=== PATIENT | female | born 1935 | race African-American/Black ===

== ENCOUNTER 2021-03-07 13:36 | Emergency (ER) | payer MEDICARE, SELFPAY ==
--- NOTE | ~2021-03-07 | CT_ITS ---
EXAMINATION: CT abd pelvis lumbar wo con EXAM DATE: 03/07/2021 17:33 INDICATION: left flank pain radiating to abdomen. TECHNIQUE: Spiral CT of the abdomen and pelvis, and lumbar spine was performed without contrast. Axi al, coronal and sagittal images of the abdomen and pelvis were reviewed. Spiral CT of the lumbar spi ne was performed with same injection of contrast. Axial, coronal and sagittal images lumbar spine we re reviewed. The dose-length product (DLP) for this examination was 338.81 mGy-cm. The exposure wa s tailored according to patient size (auto mA exposure control), and iterative reconstruction (ASIR) was used as additional dose reduction technique. There is no prior study for comparison. FINDINGS: ABDOMEN PELVIS: The liver, spleen, adrenal glands and pancreas are unremarkable. Gallbladder is unre markable. No biliary obstruction. There is no nephrolithiasis or hydronephrosis. The uterus is no t identified and has likely been surgically resected. The bladder is unremarkable. There is no retr operitoneal or pelvic lymphadenopathy. The appendix is normal. There is mild scattered colonic diverticulosis. There is no adjacent inflamm atory change to suggest diverticulitis. There is moderate-sized gastroesophageal hiatal hernia. Ther e is expected amount of colonic stool. No free intraperitoneal gas. The heart is normal in size. There are no pericardial or pleural effusions. The lung bases are unremarkable. There are no osteo blastic or osteolytic lesions identified. LUMBAR SPINE: There is mild acute compression fracture of the L1 vertebral body. There is chronic ranjana earing L2 burst fracture with mild to moderate loss of this height posteriorly, moderate to severe lo ss centrally and anteriorly. There is about 4 mm retropulsion at the L2 superior endplate, mild to mo derate central canal stenosis. There is no disc space widening or traumatic vertebral body subluxatio n suspected. Paraspinal soft tissue is unremarkable. There is moderate to severe L4-5 disc disease, mild to moderate at L3-4 with 3 mm anterolisthesis. There is moderate right L4-5 neural foraminal adams nosis, less at the other lumbar levels. No spondylolysis. Moderate disc disease T11-12 and T12-L1. Ov erall moderate lumbar facet arthropathy. A detailed level by level evaluation of spondylosis can be a dded as addendum if requested. IMPRESSION: 1. L1 acute mild compression fracture. 2. L2 chronic burst fracture. 3. Moderate-sized hiatal hernia. 4. Scattered colonic diverticulosis. Reviewed, dictated and finalized at location A. WORK WRAPPER LAYER AND EXAMINER
[2021-03-07 14:03] VITALS: BP 127/63; PULSE 82; RESP 18; TEMP 35.9; O2SAT 100
[2021-03-07 16:59] VITALS: BP 131/65; PULSE 70; RESP 18; O2SAT 100
[2021-03-07] MEDS: ACETAMINOPHEN 500 MG TABLET 1000 MG PO (17:08)
--- NOTE | 2021-03-07 17:30 | ED.BACK ---
HPI - Back Pain/Injury General Chief Complaint: Back Pain/Injury Stated Complaint: back paoin Time Seen by Provider: 03/07/21 16:41 Source: patient and family Mode of arrival: wheelchair Limitations: no limitations History of Present Illness HPI Narrative: This is a 86-year-old female that presents to the emergency department for left-sided low back pain present over the last couple of days. No recent injury or trauma. Reports the pain radiates into her left abdomen and hip. Pain also radiates down the left leg. Pain is worse with movement and relieved with rest. Reports some urinary frequency. Her daughter was concerned she may have taken too many of her water pills. Denies fever, abdominal pain, vomiting, dysuria, hematuria. Related Data Allergies Allergy/AdvReac Type Severity Reaction Status Date / Time No Known Allergies Allergy Verified 03/07/21 17:02 Review of Systems Review of Systems: CONSTITUTIONAL: Denies fever GASTROINTESTINAL: Denies abdominal pain, nausea, vomiting GENITOURINARY: Denies dysuria or hematuria. SKIN: Denies rash MUSCULOSKELETAL: Reports back pain, joint pain, and myalgia. NEUROLOGIC: Denies numbness, or weakness. All systems reviewed & are unremarkable except as noted in HPI and below PMFSH Past Medical History Medical History (Updated 03/07/21 @ 19:42 by Elissa Manzo PA-C) History of hypertension Social History Social History (Updated 03/07/21 @ 17:34 by Elissa Manzo PA-C) Substance use: never Exam Narrative: GENERAL: Elderly, well-nourished, and in no acute distress. HEAD: Normocephalic, atraumatic. EYES: EOMI. CHEST: Clear to auscultation. No respiratory distress. No wheezes rales or rhonchi HEART: Regular rate and rhythm. No murmur heard. Normal peripheral pulses. ABDOMEN: Soft, nontender, nondistended, normal active bowel sounds. BACK: No midline spinal tenderness EXTREMITIES: Normal range of motion. No edema. Strength equal in bilateral lower extremities (5/5) SKIN: Warm, dry, no rash. NEURO: No focal deficits. Alert and oriented x3. PSYCH: Normal mood and affect Course Vital Signs Vital signs: Vital Signs Temperature 96.6 F L 03/07/21 14:03 Pulse Rate 82 03/07/21 14:03 Respiratory Rate 18 03/07/21 14:03 Blood Pressure 127/63 03/07/21 14:03 Pulse Oximetry 100 03/07/21 14:03 Temperature 96.6 F L 03/07/21 14:03 Pulse Rate 70 03/07/21 16:59 Respiratory Rate 18 03/07/21 16:59 Blood Pressure 131/65 03/07/21 16:59 Pulse Oximetry 100 03/07/21 16:59 MDM - Back Pain/Injury MDM Narrative Medical decision making narrative: Patient presents to the emergency department for low back pain present over the last couple of days. Reports no recent injury or trauma. She is neurologically intact. Her vitals are stable. CBC with mild leukocytosis to 11.1. Metabolic panel with mild hypokalemia. Patient given a dose of potassium in the ED. UA without evidence of infection. CT scan of the abdomen pelvis shows an L1 acute mild compression fracture. She has a L2 chronic burst fracture. Patient and family updated on case findings. Reports she does not want any prescribed pain medication. Will be given spine surgery and information for kyphoplasty. She is stable and felt appropriate for further outpatient evaluation. She was given warnings to return to the ER Lab Data Attestation: I reviewed the patient's lab results. Result diagrams: 03/07/21 17:52 03/07/21 17:52 Labs: Lab Results 03/07/21 03/07/21 03/07/21 Range/Units 17:52 17:52 19:07 WBC 11.1 H (4.5-10.0) K/mm3 RBC 4.38 (4.2-5.4) M/mm3 Hgb 13.3 (12.0-15.0) g/dL Hct 40.1 (37.0-47.0) % MCV 91.6 (80-100) fl MCH 30.4 (26-34) pg MCHC 33.2 (32-36) g/dl RDW 14.4 (11.5-14.5) % Plt Count 360 (150-375) k/mm3 MPV 9.2 (7.4-10.4) fl Immature Gran % (Auto) 0.4 (0-0.5) % Neut % (Auto) 73.8 H (45.5-
--- NOTE | 2021-03-07 17:36 | PC.NURSE ---
Pt off floor in radiology
[2021-03-07 17:58] LABS: Basophils Absolute Auto 0.1 K/mm3 (0.0-0.1); Basophils Percent Auto 0.4 % (0.2-1.2); Eosinophils Absolute Auto 0.1 K/mm3 (0-0.3); Eosinophils Percent Auto 0.8 % (0-4.4); Hematocrit 40.1 % (37.0-47.0); Hemoglobin 13.3 g/dL (12.0-15.0); Immature Granulocyte Absolute 0.04 K/mm3 (0.00-0.031); Immature Granulocyte Percent A 0.4 % (0-0.5); Lymphocytes Absolute Auto 2.04 K/mm3 (0.9-3.2); Lymphocytes Percent Auto 18.3 % (18.3-44.2); Mean Corpuscular HGB Conc 33.2 g/dl (32-36); Mean Corpuscular Hemoglobin 30.4 pg (26-34); Mean Corpuscular Volume 91.6 fl (80-100); Mean Platelet Volume 9.2 fl (7.4-10.4); Monocytes Absolute Auto 0.7 K/mm3 (0.1-0.6); Monocytes Percent Auto 6.3 % (2.6-8.5); Neutrophils Absolute Auto 8.2 K/mm3 (1.3-6.7); Neutrophils Percent Auto 73.8 % (45.5-73.1); Platelet Count Result 360 k/mm3 (150-375); Red Blood Count 4.38 M/mm3 (4.2-5.4); Red Cell Distribution Width 14.4 % (11.5-14.5); White Blood Count 11.1 K/mm3 (4.5-10.0)
[2021-03-07 18:13] LABS: Anion Gap 13 mmol/L (8-16); Blood Urea Nitrogen 17 mg/dL (7-17); Carbon Dioxide 21 mmol/L (22-30); Chloride 101 mmol/L (98-107); Estimated CRCL calculation 53 ml/min; Estimated Glomerular Filt Rate > 60; Glucose 87 mg/dL (65-110); Sodium 135 mmol/L (137-145)
[2021-03-07 19:36] LABS: Add Urine Microscopic? YES; Appearance Urine Clear (Clear); Bilirubin Urine Negative (Negative); Blood Urine 1+ (Negative); Color Urine Yellow (Yellow); Glucose Urine UA Negative (Negative); Ketones Urine 1+ mg/dL (Negative); Leukocyte Esterase Ur Negative LEU/UL (Negative); Mucus Urine Rare /lpf; Nitrate Urine Negative (Negative); Protein Urine Negative (Negative); RBC Urine 0-2 /hpf (0-2); Specific Grav Ur 1.006 (1.001-1.035); Squamous Epithelial Cell Urine Occasional /hpf (Few); Urobilinogen Urine Negative mg/dL (<2.0); WBC Urine 0-3 /hpf
[2021-03-07] MEDS: POTASSIUM CHLORIDE 20 MEQ TABLET 40 MEQ PO (19:52)
[2021-03-07 20:05] VITALS: BP 120/64; PULSE 79; RESP 18; TEMP 36.6; O2SAT 99
== END 2021-03-07 20:05 | disposition home or self-care (01) ==
PROVIDERS: Emergency Medicine; Physician Assistant; Emergency Provider Emergency Medicine
DX: M48.56XA Collapsed vertebra, not elsewhere classified, lumbar region, initial encounter for fracture (principal); I10 Essential (primary) hypertension; K44.9 Diaphragmatic hernia without obstruction or gangrene; K57.90 Diverticulosis of intestine, part unspecified, without perforation or abscess without bleeding
CPT/HCPCS: 36415; 72131; 74176; 80048; 81001; 85025; 99284; A9270

== ENCOUNTER 2022-06-11 13:08 | Outpatient (CLI) | payer MEDICARE, SELFPAY ==
--- NOTE | ~2022-06-11 | XR_ITS ---
EXAMINATION: XR chest 2V 06/11/2022 13:23 INDICATION: Cough. PROCEDURE: 2 view chest COMPARISON: No prior studies for comparison. FINDINGS: The lungs are clear. The lungs are hyperinflated which is consistent with, but not diagnost ic of chronic obstructive pulmonary disease. The cardiomediastinal silhouette is within normal limits . There are no pleural effusions. There is no pneumothorax suspected. There is hiatal hernia. IMPRESSION: 1: NO ACUTE CARDIOPULMONARY DISEASE. Reviewed, dictated and finalized at location B. ER TAILER
== END 2022-06-11 13:09 | disposition home or self-care (01) ==
LOC: ANHIMG 13:10
PROVIDERS: PCP Physician Assistant; Visit Provider Physician Assistant
DX: R05.9 Cough, unspecified (principal)
CPT/HCPCS: 71046

== ENCOUNTER 2023-04-17 10:03 | Inpatient (IN) | payer MEDICARE, SELFPAY ==
[2023-04-17] VITALS (14 sets, daily range): BP systolic 106–150; BP diastolic 53–71; PULSE 62–87; RESP 14–26; TEMP 36.3–36.8; O2SAT 93–100; BMI 26.4
--- NOTE | ~2023-04-17 | CT_ITS ---
EXAMINATION: CTA brain carotid DATE: 04/17/2023 15:06 INDICATION: CVA, left sided weakness TECHNIQUE: Computed tomographic angiography (CTA) of the head and neck was performed with 100 mL Omni paque-350 intravenous contrast. Automated exposure control and iterative reconstruction technique wer e employed. The dose-length product was 959.52 mGy-cm. Maximum intensity projection and volume rende red 3D-reconstructions were created by the technologist on a separate workstation. COMPARISON: CT brain, same date. FINDINGS: CTA HEAD: No large vessel occlusion, aneurysm, high flow vascular malformation, nidus or extravasation. Focal c alcification in the mid intradural segment of the right vertebral artery without significant stenosis . Persistent origin of the right FOOD SERVICE TEAM MEMBER. Focal short segment mild stenoses in the bilateral M1 seg ments. Calcified plaque in the bilateral cavernous carotids, without significant stenosis. Patent cer ebral veins. Symmetric parenchymal enhancement. CTA NECK: Aortic arch and proximal great vessels: Mild arch calcification. Normal arch anatomy. Right common carotid, carotid bifurcation, and internal carotid artery: No plaque.There is 0% stenosi s of the proximal right internal carotid artery relative to normal distal artery lumen diameter (NASC ET criteria). Vascular loops. String of beads appearance in the distal right internal carotid artery. No dissection, thrombosis, or severe stenosis detected in the affected portions of the vessel. Left common carotid, carotid bifurcation, and internal carotid artery: No plaque.There is 0% stenosis of the proximal left internal carotid artery relative to normal distal artery lumen diameter (NASCET criteria). Vascular loops. String of beads appearance in the distal left internal carotid artery. No dissection, thrombosis, or severe stenosis detected in the affected portions of the vessel. Vertebral arteries: No significant plaque or stenosis. Left vertebral artery is dominant. Vascular lo ops are present bilaterally, with mild string of beads appearance to the distal arteries. No dissecti on, thrombosis, or severe stenosis detected in the affected portions of the vessel. Other findings: Patulous esophagus. Biapical pleural scarring subcentimeter thyroid hypodensities alexei t require no additional evaluation at this time. Right lens replacement. IMPRESSION: No large vessel occlusion. No significant carotid or vertebral artery stenosis. 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 Sim ilar but less pronounced changes also noted in the bilateral extracranial vertebral arteries. Reviewed, dictated and finalized at location K. IFICATION CONSULTANT IMPRESSION: No large vessel occlusion. No significant carotid or vertebral artery stenosis. CT findings suggestive of bilateral extracranial internal carotid artery fibrom uscular dysplasia. Similar but less pronounced changes also noted in the bilate ral extracranial vertebral arteries.
--- NOTE | ~2023-04-17 | MR_ITS ---
MRI of the brain Clinical History: Left-sided weakness Technique: Axial and sagittal T1-weighted images were acquired. These were followed by axial T2-weigh vasyl, diffusion weighted, gradient, and FLAIR images. Findings: There is a 1.8 x 1.1 cm area of restricted diffusion involving the right periventricular wh ite matter, extending to the right basal ganglia, consistent with acute infarct. There are mild to mo derate background chronic microvascular ischemic changes in the periventricular white matter bilatera lly. No intracranial hemorrhage identified. Ventricles and subarachnoid spaces are dilated. Orbits are unremarkable. Paranasal sinuses and mastoi d air cells are clear. Major intracranial flow voids appear intact. Sagittal midline structures are intact. IMPRESSION: 1.8 x 1.1 cm area of acute infarct involving the right basal ganglia extending to the right periventr icular white matter. Background mild to moderate chronic microvascular ischemic changes and mild generalized atrophy. No intracranial hemorrhage. Reviewed, dictated and finalized at [facility]. AL PROGRAM DIRECTOR IMPRESSION: 1.8 x 1.1 cm area of acute infarct involving the right basal ganglia extending to the right periventricular white matter. Background mild to moderate chronic microvascular ischemic changes and mild gen eralized atrophy. No intracranial hemorrhage.
--- NOTE | ~2023-04-17 | CT_ITS ---
EXAMINATION: CT brain wo con DATE: 04/17/2023 11:19 INDICATION: Generalized weakness. Head injury. TECHNIQUE: Computed tomography (CT) of the head was performed without intravenous contrast. The mA wa s adjusted according to patient size. Iterative reconstruction technique was employed. The dose-lengt h product was 605.33 mGy-cm. COMPARISON: None FINDINGS: There are scattered areas of low attenuation in the cerebral white matter. There is no intr acranial hemorrhage, acute infarction, or abnormal intracranial mass lesion. The ventricles are rosie l in size. There are likely changes of right ocular lens replacement surgery. There is mild mucosal t hickening in the paranasal sinuses. The mastoid air cells are normal. IMPRESSION: 1. Moderate nonspecific cerebral white matter disease, which likely represents chronic small vessel i schemic disease. Reviewed, dictated and finalized at location A. ROLLER IMPRESSION: 1. Moderate nonspecific cerebral white matter disease, which likely represents chronic small vessel ischemic disease.
--- NOTE | ~2023-04-17 | XR_ITS ---
EXAMINATION: XR elbow RT min 3V DATE: 04/20/2023 14:37 INDICATION: Right elbow pain and limited range of motion TECHNIQUE: Anteroposterior, two oblique and lateral views of the right elbow were obtained. COMPARISON: 04/17/2023 FINDINGS: Chronic potentially nonunited fracture with separation of the distal condylar fragments in the more p roximal metaphyseal region of the distal humerus. The condylar fragment is displaced approximately on the anterior margin of the distal humerus. 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 Persistent elbow joint effusion with displacement of the anterior and posterior fat pads. This oste ochondral body at the anterior recess of the joint space. Soft tissue swelling about the elbow. IMPRESSION: 1. 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 Reviewed, dictated and finalized at location A. OCCUPATIONAL IMPRESSION: 1. 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
--- NOTE | ~2023-04-17 | XR_ITS ---
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 TECHNIQUE: A time-out was performed to verify the patient's name, date of , and procedure to b e performed. The procedure including the risks, benefits, and alternatives was discussed with the pat ient and the patient's family. Risks discussed included bleeding and infection. The patient and the p atient's family both agreed to proceed. The skin overlying the lateral aspect of the right elbow gene nt was prepped and draped in usual sterile fashion. Anesthetic was administered with 1% lidocaine brady bcutaneously. A 22 G needle was advanced under fluoroscopic guidance into the joint. Injection of 1 mL of Omnipaque 240 confirmed intra-articular position of the needle. Subsequently, injectate consi sting of 2 mL of a 1:1 mixture of 1% lidocaine: 80 mg/mL Depo-Medrol for a total dosage of 80 mg Depo -Medrol was instilled. Washout of contrast was seen confirming intra-articular administration. The ne edle was removed and the entry site was cleaned and dressed. There were no immediate complications. Fluoroscopy exposure time was 0.1 minutes. The total number of images was 3. FINDINGS: Real-time fluoroscopy demonstrates the needle and contrast in the right elbow joint. Subseq uent image demonstrates washout of contrast into the anterior recess of the joint space following adams roid injection. 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 IMPRESSION: 1. Successful right elbow joint injection of local anesthetic and steroid. 2. 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 Reviewed, dictated and finalized at location A. HIATRIC NURSE IMPRESSION: 1. Successful right elbow joint injection of local anesthetic and steroid. 2. 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
--- NOTE | ~2023-04-17 | XR_ITS ---
EXAMINATION: XR elbow RT min 3V DATE: 04/17/2023 11:23 INDICATION: Right elbow pain. TECHNIQUE: 6 views of right elbow were obtained. COMPARISON: None. FINDINGS: Bone alignment is normal. There is a fracture deformity of distal humerus. There is advance d elbow joint osteoarthritis. There is an elbow joint effusion with loose bodies. IMPRESSION: 1. Fracture deformity of distal humerus, which may be chronic. 2. Advanced osteoarthritis of the elbow joint. 3. Elbow joint effusion with loose body. Reviewed, dictated and finalized at location A. [facility]
--- NOTE | ~2023-04-17 | XR_ITS ---
EXAMINATION: XR chest 1V portable DATE: 04/17/2023 11:22 INDICATION: Weakness. Hypertension. TECHNIQUE: A single frontal view of the chest was obtained. COMPARISON: Chest 2 views 06/11/2022, CT abdomen and pelvis 03/07/2021 FINDINGS: There is mild scarring at the lung apices. No pleural effusion or pneumothorax. Cardiomegal y is noted. There is a large hiatal hernia. There is an old healed right rib fracture. IMPRESSION: 1. Large hiatal hernia. 2. Cardiomegaly. Reviewed, dictated and finalized at location A. E[employer]OR [employer]CH[employer]IC
--- NOTE | 2023-04-17 10:26 | ECG_ITS ---
Measurements Intervals [place] Rate: 67 P: 57 AK: 182 QRS: -32 QRSD: 82 T: 37 QT: 415 QTc: 441 Interpretive Statements SINUS RHYTHM WITH SINUS ARRHYTHMIA MARKED LEFT AXIS DEVIATION [QRS AXIS < -30] POSSIBLE RIGHT VENTRICULAR CONDUCTION DELAY [RSR (QR) IN V1/V2] MODERATE VOLTAGE CRITERIA FOR LVH, CONSIDER NORMAL VARIANT [MEETS CRITERIA IN ONE OF: R(aVL), S(V1), R(V5), R(V5/V6)+S(V1)] NO PREVIOUS ECG AVAILABLE FOR COMPARISON Electronically Signed On 04-17-2023 15:15:26 HORSE TREKKING GUIDE by Dimitri Blue M.D.
--- NOTE | 2023-04-17 10:44 | ED.GENADULT ---
HPI - General Adult General Chief complaint: Weakness Stated complaint: weakness/lethargy since last noc Time Seen by Provider: 04/17/23 10:26 History of Present Illness HPI narrative: 88-year-old female presenting to the emergency department for evaluation of increased generalized weakness. Family states that the patient began having feeling weak last night at approximately 4:00 p.m. and patient did go to bed early. Patient woke up at 9:30 p.m. and did have some increased generalized weakness. When the patient woke up this morning she was still week. Patient did have a fall around [place] time but has not yet been evaluated. Patient does have increased right elbow pain. Patient does have chronic elbow pain but this was increased after the fall. Patient denies any chest pain shortness of breath nausea vomiting diarrhea. Patient does have some mild weakness of the left upper extremity and weakness is greater the left lower extremity than the right. Patient does have increase in slurred speech compared to baseline per family. Patient's last known normal was 4:00 p.m. yesterday Related Data Allergies Allergy/AdvReac Type Severity Reaction Status Date / Time No Known Allergies Allergy Verified 04/17/23 18:34 Review of Systems Review of Systems: All systems reviewed & are unremarkable except as noted in HPI and below PMFSH Past Medical History Medical History (Updated 04/17/23 @ 19:17 by Enmanuel Huitron MD) Hypertension Surgical History Surgical History (Updated 04/17/23 @ 17:22 by Fannie Newell PA-C) History of cataract extraction with lens replacement Social History Social History (Updated 04/17/23 @ 17:23 by Fannie Newell PA-C) Social History: Surrogate medical decision maker: Bety Avila, daughter. Code status: Full code. Smoking status: Never smoker Alcohol intake: never Substance use: never Do You Feel Safe in your Home?: Yes Lack of Transportation: No Lack of Food: Never True Current Housing: I Have Housing Concerned About Future Housing: No Difficulty Paying Gas/Electric Bills: No Difficulty Paying for Meds: No Currently Unemployed: No Education: Decline to Answer Difficulty w/ Childcare or Family Care: No Additional living arrangements comments: Lives in [place]. Spiritual care concerns: No Exam Narrative: APPEARANCE: Well appearing, no pain, no distress, well-nourished. HEAD: normocephalic, atraumatic. EYES: PERRLA/EOMI, conjunctivae clear. NOSE: Normal no drainage NECK: Supple. No adenopathy, no masses. RESPIRATORY: Airway patent, respirations nonlabored. Clear to auscultation bilaterally, no rales, rhonchi, wheezing. CARDIOVASCULAR: Regular rate and rhythm without murmurs rubs or gallops. ABDOMINAL: Soft, nontender, nondistended, normal bowel sounds MUSCULOSKELETAL: Moves all extremities. Strength/ROM intact, No edema, No calf tenderness. NEURO: Alert. Cranial nerves II through XII intact. No oil taxi of the left upper extremities some weakness of the left lower extremity, left-sided facial droop SKIN: Warm, dry. Normal Color Course Course Emergency Course: 88-year-old female presents emergency department for evaluation of increased generalized weakness. Patient is afebrile with no leukocytosis and a stable hemoglobin. CMP is normal appearing. No evidence of a urinary traction. Patient was negative influenza RSV and COVID. CT CTA were negative for acute intracranial abnormality. Case was discussed with the hospitalist patient has opted for admission. Neurology consult order was placed. Patient and family were updated on the plan for admission with further workup. I discussed the code status with the patient's family and patient was made a DNI DNR. Vital Signs Vital signs: Vital Signs Temperature 97.6 F 04/17/23 10:04 Pulse Rate 65 04/17/23 10:04 Respiratory Rate 16 04/17/23 10:04 Blood Pressure 132/64
[2023-04-17 10:52] LABS: Basophils Absolute Auto 0.1 K/mm3 (0.0-0.1); Basophils Percent Auto 0.9 % (0.2-1.2); Eosinophils Absolute Auto 0.3 K/mm3 (0-0.3); Eosinophils Percent Auto 3.3 % (0-4.4); Hematocrit 36.3 % (37.0-47.0); Hemoglobin 11.3 g/dL (12.0-15.0); Immature Granulocyte Absolute 0.03 K/mm3 (0.00-0.031); Immature Granulocyte Percent A 0.4 % (0-0.5); Lymphocytes Absolute Auto 1.85 K/mm3 (0.9-3.2); Lymphocytes Percent Auto 23.7 % (18.3-44.2); Mean Corpuscular HGB Conc 31.1 g/dl (32-36); Mean Corpuscular Volume 86.6 fl (80-100); Mean Platelet Volume 9.6 fl (7.4-10.4); Monocytes Absolute Auto 0.7 K/mm3 (0.1-0.6); Monocytes Percent Auto 8.3 % (2.6-8.5); Neutrophils Percent Auto 63.4 % (45.5-73.1); Platelet Count Result 389 k/mm3 (150-375); Red Blood Count 4.19 M/mm3 (4.2-5.4); Red Cell Distribution Width 14.5 % (11.5-14.5); White Blood Count 7.8 K/mm3 (4.5-10.0)
[2023-04-17 11:01] LABS: Lactic Acid Reflex 0.9 mmol/L (0.7-2.0)
[2023-04-17 11:02] LABS: Alanine Aminotransferase 10 U/L (6-35); Alkaline Phosphatase 87 U/L (38-126); Anion Gap 7 mmol/L (8-16); Aspartate Amino Transferase 20 U/L (14-36); Bilirubin,Total 0.8 mg/dL (0.2-1.3); Blood Urea Nitrogen 14 mg/dL (7-17); Calcium 9.3 mg/dL (8.4-10.2); Carbon Dioxide 25 mmol/L (22-30); Chloride 107 mmol/L (98-107); Estimated CRCL calculation 50 ml/min; Estimated Glomerular Filt Rate > 60; Glucose 93 mg/dL (65-110); Potassium 3.4 mmol/L (3.4-5.0); Sodium 139 mmol/L (137-145)
[2023-04-17 11:15] LABS: INR 1.2; Prothrombin Time 15.6 Seconds (11.1-14.7)
[2023-04-17 11:16] LABS: Partial Thromboplastin Time 67.1 SECONDS (22.3-36.8)
[2023-04-17 11:17] LABS: Appearance Urine Turbid (Clear); Bacteria Urine None Seen /hpf; Bilirubin Urine Negative (Negative); Blood Urine Negative (Negative); Color Urine Yellow (Yellow); Glucose Urine UA Negative (Negative); Ketones Urine Negative (Negative); Leukocyte Esterase Ur Negative LEU/UL (Negative); Need Manual Microscopic Reviewed; Nitrate Urine Negative (Negative); Non Pathogenic Casts 0-2; Protein Urine Negative (Negative); Specific Grav Ur 1.017 (1.001-1.035); Squamous Epithelial Cell Urine Occasional /hpf (Few); WBC Urine 0-5 /hpf
[2023-04-17 11:18] LABS: Add Urine Microscopic? YES
[2023-04-17 11:27] LABS: Influenza A QL RT-PCR Negative (Negative); Influenza B QL RT-PCR Negative (Negative); RSV RNA, RT-PCR Negative (Negative); SARS-CoV-2 RNA PCR Negative (Negative)
[2023-04-17] MEDS: ASPIRIN 81 MG CHEWABLE TABLET 324 MG PO (16:40)
--- NOTE | 2023-04-17 17:17 | PM.IMHP ---
H&P: HPI History of Present Illness Date/Time: 04/17/23 19:00 Chief Complaint: Weakness, not acting herself. Narrative: This is an 88-year-old female with hypertension who presented to the emergency department via EMS from home for evaluation of weakness and not acting herself. The patient provides the following history and her daughter provides additional information with the patient's permission. Early yesterday evening she apparently went to bed a bit early and woke up around 21:30 at which time she noticed that she was feeling weak. She needed help getting back to bed and slept throughout the night. Upon waking this morning she felt generally weak and had difficulties getting herself up. On exam in the ED it appears that she is more weak on the left side compared to the right and she has some slurred speech. Last known normal was sometime last evening. She denies vertigo, visual changes, difficulty swallowing, and paresthesias. She does notice that her left arm and leg or perhaps a bit weaker when compared to the right but she goes on to say that she has chronic pain in her left elbow and shoulder which limits her ability to raise that arm. She also denies syncope, near syncope, fever, chills, sweats, recent cold or flu symptoms, and head trauma. She typically ambulates unassisted and has not had any issues with recurrent falls but does report having a fall somewhere around [place]. In the ED: She was afebrile on arrival with stable vital signs. CMP and CBC were pretty unremarkable. UA was bland. She tested negative for influenza, RSV, and COVID. Brain CT showed moderate nonspecific cerebral white matter disease. CTA of the head and neck showed no large vessel occlusion, no significant carotid or vertebral artery stenosis but did note findings suggestive of fibromuscular dysplasia. She is being admitted in this setting for close monitoring, stroke workup, and neurology consultation. Review of Systems Review of Systems: Twelve systems were reviewed and are negative except for as per HPI. [facility] Past Medical History Medical History Hypertension Surgical History Surgical History (Updated 04/17/23 @ 23:59 by Fannie Newell PA-C) History of cataract extraction with lens replacement History of cholecystectomy History of hysterectomy History of tonsillectomy Family History Family History (Updated 04/17/23 @ 23:59 by Fannie Newell PA-C) Other Family history unknown Social History Social History (Updated 04/17/23 @ 23:59 by Fannie Newell PA-C) Social History: Surrogate medical decision maker: Bety Avila, daughter. Code status: Full code. Smoking status: Never smoker Alcohol intake: never Substance use: never Do You Feel Safe in your Home?: Yes Lack of Transportation: No Lack of Food: Never True Current Housing: I Have Housing Concerned About Future Housing: No Difficulty Paying Gas/Electric Bills: No Difficulty Paying for Meds: No Currently Unemployed: No Education: Decline to Answer Difficulty w/ Childcare or Family Care: No Additional living arrangements comments: Patient tells me that she lives with her son. 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 Spiritual care concerns: No Meds Home Medications and Allergies Allergies Allergy/AdvReac Type Severity Reaction Status Date / Time No Known Allergies Allergy Verified 04/17/23 18:34 Vital Signs Vital Signs - 24 hr 04/17/23 10:04 04/17/23 10:18 04/17/23 10:30 Temperature 97.6 F Pulse Rate 65 62 67 Respiratory Rate 16 15 14 Blood Pressure 132/64 Pulse Oximetry 100 100 Oxygen Delivery Room Air 04/17/23 10:31 04/17/23 10:45 04/17/23 12:05 Temperature Pulse Rate 68 71 75 Respiratory Rate 18 15 16 Blood Pressure 106/69 Pulse Oximetry 93 Oxygen Delivery 04/17/23 12:15 04/17/23 12:30 04/17/23 12:31 Temperature P
--- NOTE | 2023-04-17 18:26 | ADMGEN ---
This patient, Arielle Peñaloza, was admitted to [facility] Surg Room 330-01. Patient/family oriented to hospital policies and general routines including ID bracelet, bed and alarms, visiting hours, pain management, procedures, bathroom and other care routines, personal items, smoking policy, room service/diet, and visiting hours. Information on how to activate the Rapid Response Team has been discussed. Patient/Family are encouraged to report perceived risks to care and to ask questions if they do not understand what they are told or what they should do.
[2023-04-17 20:45] LABS: Iron 79 ug/dL (37-170)
[2023-04-17 20:51] LABS: Percent Iron Saturation 20 % (20-50)
[2023-04-17 21:15] LABS: Thyroid Stimulating Hormone Reflex 0.841 uIU/mL (0.465-4.68)
[2023-04-18] VITALS (9 sets, daily range): BP systolic 133–151; BP diastolic 60–70; PULSE 66–108; RESP 16–18; TEMP 36.1–36.7; O2SAT 100; BMI 10.0
--- NOTE | 2023-04-18 | ECHO_ITS ---
Patient Info Name: Arielle Peñaloza Age: 88 years : 1935 Gender: Female Ht: 60 in Wt: 145 lbs BSA: 1.69 m2 HR: 71 bpm BP: 142 / 60 mmHg Heart Rhythm: Indeterminant Technical Quality: Good Exam Date: 04/18/2023 9:51 AM Exam Location: Echo Lab Patient Status: Outpatient Admit Date: 04/17/2023 Staff Ordering Physician: Fannie Newell PA-C Rn Examiner: Jimmy Blackwood RDCS Attending Provider: Stefan El MD Referring Physician: Osiris BARKER; Exam Type: CA echo doppler color flow Study Info Indications - left side weakness, HTN Complete two-dimensional, color flow and Doppler transthoracic echocardiogram is performed. Summary 1. Complete two-dimensional, color flow and Doppler transthoracic echocardiogram is performed. 2. Left ventricular chamber dimension is normal. 3. Left ventricular systolic function is hyperdynamic, estimated at >70%. 4. There is mildly increased left ventricular wall thickness. 5. The left ventricular diastolic function is grade I diastolic dysfunction. 6. Right ventricular systolic function is normal. 7. There is mild aortic valve regurgitation. 8. There is trace mitral valve regurgitation. 9. There is trace tricuspid valve regurgitation. Left Ventricle Left ventricular chamber dimension is normal. Left ventricular systolic function is hyperdynamic, estimated at >70%. There is mildly increased left ventricular wall thickness. The left ventricular diastolic function is grade I diastolic dysfunction. Right Ventricle Right ventricular chamber dimension is normal. Right ventricular systolic function is normal. Left Atria Left atrial chamber dimension is normal. Right Atria Right atrial chamber dimension is normal. Atrial Septum Intact interatrial septum visualized by color flow imaging. Aortic Valve The aortic valve is not well visualized. There is no aortic valve stenosis. There is mild aortic valve regurgitation. Pulmonic Valve The pulmonic valve is not well visualized. Mitral Valve There is trace mitral valve regurgitation. The mitral valve annulus is mildly calcified. Tricuspid Valve There is trace tricuspid valve regurgitation. Pericardium/Pleural There is no pericardial effusion. Inferior Vena Cava Inferior vena cava is not well visualized. Aorta The aortic root size at the sinus of Valsalva is normal. Left Ventricular Outflow Tract Name Value Normal LVOT Doppler LVOT Peak Gradient 8 mmHg LVOT Mean Gradient 4 mmHg LVOT VTI 29 cm LVOT VTI/AV VTI Ratio 0.8 Pulmonic Valve Name Value Normal PV Doppler PV Peak Gradient 3 mmHg Mitral Valve Name Value Normal MV Doppler MV Decel [place] 393 cm/s2
[2023-04-18 06:38] LABS: Anion Gap 12 mmol/L (8-16); Blood Urea Nitrogen 11 mg/dL (7-17); Calcium 10.1 mg/dL (8.4-10.2); Carbon Dioxide 21 mmol/L (22-30); Chloride 107 mmol/L (98-107); Cholesterol 253 mg/dL (0-200); Estimated CRCL calculation 56 ml/min; Estimated Glomerular Filt Rate > 60; Glucose 83 mg/dL (65-110); HDL Direct 88 mg/dL; Potassium 3.5 mmol/L (3.4-5.0); Sodium 140 mmol/L (137-145); Triglycerides 65 mg/dL (<150)
[2023-04-18 06:49] LABS: LDL Cholesterol Direct 137 mg/dL
--- NOTE | 2023-04-18 11:08 | WPDNEURCNPN ---
Assessment and Plan Assessment and plan (1) Left-sided weakness: Code(s): R53.1 - Weakness Status: Acute (2) Fibromuscular dysplasia of both carotid arteries: Code(s): I77.3 - Arterial fibromuscular dysplasia Status: Acute (3) Hypertension: Code(s): I10 - Essential (primary) hypertension Status: Acute Plan Arielle Peñaloza is a 88 year old female with a history of hypertension who was brought in due to concerns for generalized weakness. Initially presented due to concerns for generalized weakness but in the ED noted to have LUE and LLE weakness. She was outside the window for any intervention by the time she presented. Also considering pain as the cause of limitation in movement of the L sided rather than acute stroke. On my exam today, she appears to have generalized weakness, with slightly worse weakness in the LUE. - MRI brain w/o contrast will need needed to evaluate for acute stroke - Agree with Aspirin 81mg daily for now - If MRI is positive for stroke will need to check echocardiogram with bubble study, LDL, A1c; - Will also need follow-up with vascular given the fibromuscular dysplasia noted on imaging Consult date: 04/18/23 Reason for consult: Concern for stroke HPI: Arielle Peñaloza is a 88 year old female with a history of hypertension who was brought in due to concerns for generalized weakness. Patient's LKW was 1600 on 04/16. At that time she decided to go to bed. She wokup around 2130 on the same night and felt that she was weak. She needed some help getting back into bed and went back to sleep. She wokiup the following morning (day of presentation), with continued generalized weakness so she was taken to [facility]. In the ED her exam was concerning for more pronounced LUE and LLE weakness, although patient reports that she has chronic pain in her L elbow that limits her ability to raise that arm. She was also noted to have some slurring of her speech from baseline. Her blood pressure in the ED was in the 130s systolic. EKG showed normal sinus rhythm. Lab work was unrevealing. UA was not concerning for infection. CT head did not show any acute changes. 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 She has been started on baby aspirin 81mg daily but the hospitalist. MRI brain is still pending. Review of Systems Review of Systems: All systems reviewed & are unremarkable except as noted in HPI and below Musculoskeletal: Musculoskeletal: Reports arthralgias PMFSH Past Medical History Medical History Hypertension Surgical History Surgical History History of cataract extraction with lens replacement History of cholecystectomy History of hysterectomy History of tonsillectomy Family History Family History (Updated 04/17/23 @ 23:59 by Fannie Newell PA-C) Other Family history unknown Social History Social History Social History: Surrogate medical decision maker: Bety Avila, daughter. Code status: Full code. Smoking status: Never smoker Alcohol intake: never Substance use: never Do You Feel Safe in your Home?: Yes Lack of Transportation: No Lack of Food: Never True Current Housing: I Have Housing Concerned About Future Housing: No Difficulty Paying Gas/Electric Bills: No Difficulty Paying for Meds: No Currently Unemployed: No Education: Decline to Answer Difficulty w/ Childcare or Family Care: No Additional living arrangements comments: Patient tells me that she lives with her son. 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 Spiritual care concerns: No Meds Home Medications and Allergies Jamal
[2023-04-18] MEDS: ASPIRIN 81 MG CHEWABLE TABLET PO (14:08)
--- NOTE | 2023-04-18 18:38 | PM.IMPN ---
Progress Note: A&P Assessment and Plan (1) Left-sided weakness: Code(s): R53.1 - Weakness Status: Acute Assessment and Plan: Appreciate neurology consult, MRI pending, aspirin 81 mg daily (2) Hypertension: Code(s): I10 - Essential (primary) hypertension Status: Acute Assessment and Plan: Blood pressure reviewed 04/18 (3) Fibromuscular dysplasia of both carotid arteries: Code(s): I77.3 - Arterial fibromuscular dysplasia Status: Acute Assessment and Plan: Follow-up with vascular outpatient (4) Anemia: Code(s): D64.9 - Anemia, unspecified Status: Acute Assessment and Plan: Follow-up anemia labs, monitor hemoglobin Plan DVT prophylaxis with SCDs GI prophylaxis not indicated Code status full code The patient presented to the emergency department for evaluation of weakness, more so on the left side, as detailed in HPI. Labs, imaging, EKG, and all reports were personally reviewed. Brain CT did not show any evidence to suggest acute stroke. CTA of the head and neck was negative for large vessel occlusion and significant stenosis however findings suggestive of fibromuscular dysplasia were noted. She received aspirin 324 mg and will be started on a baby aspirin daily. Blood pressures were reviewed and they are well controlled and will need to stay well controlled given findings as above. She will be monitored on telemetry and an echocardiogram has been ordered for further evaluation. Continue neurologic checks q.4 hours. Neurology has been consulted and their input is appreciated. Check fasting lipids in a.m. PT/OT also consulted. Check iron studies, B12, and folate level for evaluation of a mild, normocytic anemia. Her home medications will be reviewed and resumed as appropriate. Findings and treatment plan were discussed with the patient. Questions were solicited and answered to satisfaction. The patient's medical management will be taken over by the hospitalist team in a.m. Subjective Date/time seen: 04/18/23 18:38 Interval history: 88-year-old female with history of high blood pressure presenting with altered mental status and left sided weakness. No overnight events noted. No chest pain or shortness of breath. No nausea, vomiting or diarrhea. No fevers or chills. Review of Systems Review of Systems: 12 point review of systems was assessed and was negative except as noted in the HPI Exam Narrative: General: No acute distress, alert and oriented, unsure of baseline mentation HEENT: Atraumatic, normocephalic, mucous membranes moist CV: Regular rate and rhythm, S1, S2 Lungs: Clear to auscultation bilaterally, no rales or crackles noted, no wheezes, good air entry Abdomen: Soft, nontender, nondistended Extremities: Normal to inspection Skin: No rashes noted, no lesions or wounds seen Psych: Euthymic, normal affect Neuro: slurred speech noted, 3/5 LUE, 5/5 RUE, 3/5 B/L LE Objective Data Vital Signs Vital Signs: Vital Signs - 24 hr 04/17/23 22:00 04/17/23 20:00 04/17/23 20:00 Temperature 97.4 F L Pulse Rate 87 77 Respiratory Rate 16 Blood Pressure 150/69 H Pulse Oximetry 100 100 Oxygen Delivery Room Air 04/18/23 00:00 04/18/23 04:00 04/18/23 05:24 Temperature 97.0 F L Pulse Rate 66 81 71 Respiratory Rate 18 Blood Pressure 147/60 H Pulse Oximetry 100 Oxygen Delivery 04/18/23 08:00 04/18/23 08:00 04/18/23 12:51 Temperature Pulse Rate 74 Respiratory Rate Blood Pressure Pulse Oximetry 100 Oxygen Delivery Room Air Room Air 04/18/23 12:00 04/18/23 14:00 04/18/23 16:00 Temperature 98.0 F Pulse Rate 97 90 108 H Respiratory Rate 16 Blood Pressure 151/63 H Pulse Oximetry 100 Oxygen Delivery Intake/Output Intake/Output: Intake & Output 04/15/23 04/16/23 04/17/23 04/18/23 23:59 23:59 23:59 23:59 Intake Total 150 Balance 150 M
[2023-04-19] VITALS (9 sets, daily range): BP systolic 120–129; BP diastolic 66–81; PULSE 68–86; RESP 18–24; TEMP 36–36.6; O2SAT 99–100
[2023-04-19] MEDS: ASPIRIN 81 MG CHEWABLE TABLET PO (09:31)
--- NOTE | 2023-04-19 10:34 | PCPTNOTE ---
Unable to see patient at this time due to patient out of room for MRI. PT will continue to follow.
--- NOTE | 2023-04-19 10:54 | PCSTNOTE ---
Bedside swallowing evaluation completed. Patient alert and calm. Positioned upright in bed with head of bed elevated. Patient presents with moderate oral motor weakness (left sided) involving face, lips, and tongue. Tongue deviates to left upon protrusion. Patient is able to achieve labial seal but it is weak and sucking through a straw is difficulty. Speech intelligibility is impaired due to dysarthria. Trials of thin liquid by spoon and cup were given and lengthy transit time was observed. Trials of mildly thickened liquids and pureed consistency food were given and patient was able to manage without any anterior seepage when given small bite size. Patient states that she prefers soft food already because she has no teeth and doesn't wear her dentures. Based on the results of this evaluation these recommendations are made: pureed diet (level 4) with mildly thickened liquids (level 2). No straws, place pills in applesauce. Please note that silent aspiration cannot be ruled out at bedside and but can be evaluated with a modified barium swallow study. Speech therapy is recommended to address dysphagia. A speech language evaluation order is requested due to presence of dysarthria. Thank you for the referral of this patient. [ End ]
--- NOTE | 2023-04-19 13:44 | PM.IMPN ---
Progress Note: A&P Assessment and Plan (1) Left-sided weakness: Code(s): R53.1 - Weakness Status: Acute Assessment and Plan: Appreciate neurology consult, MRI showed infarct, aspirin 81 mg daily (2) Hypertension: Code(s): I10 - Essential (primary) hypertension Status: Acute Assessment and Plan: Blood pressure reviewed 04/19 (3) Fibromuscular dysplasia of both carotid arteries: Code(s): I77.3 - Arterial fibromuscular dysplasia Status: Acute Assessment and Plan: Follow-up with vascular outpatient (4) Anemia: Code(s): D64.9 - Anemia, unspecified Status: Acute Assessment and Plan: Follow-up anemia labs, monitor hemoglobin (5) CVA (cerebral vascular accident): Code(s): I63.9 - Cerebral infarction, unspecified Status: Acute Assessment and Plan: 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 No overnight events noted. No chest pain or shortness of breath. No nausea, vomiting or diarrhea. No fevers or chills. Still with generalized weakness and difficulty with slurred speech. Review of Systems Review of Systems: 12 point review of systems was assessed and was negative except as noted in the HPI Exam Narrative: General: No acute distress, alert and oriented, unsure of baseline mentation HEENT: Atraumatic, normocephalic, mucous membranes moist CV: Regular rate and rhythm, S1, S2 Lungs: Clear to auscultation bilaterally, no rales or crackles noted, no wheezes, good air entry Abdomen: Soft, nontender, nondistended Extremities: Normal to inspection Skin: No rashes noted, no lesions or wounds seen Psych: Euthymic, normal affect Neuro: slurred speech noted, 3/5 LUE, 5/5 RUE, 3/5 B/L LE Objective Data Vital Signs Vital Signs: Vital Signs - 24 hr 04/18/23 14:00 04/18/23 16:00 01/01/24 21:53 Temperature 98.0 F 97.4 F L Pulse Rate 90 108 H 87 Respiratory Rate 16 18 Blood Pressure 151/63 H 133/70 Pulse Oximetry 100 100 Oxygen Delivery 04/18/23 20:00 04/18/23 20:00 04/19/23 00:00 Temperature Pulse Rate 79 86 Respiratory Rate Blood Pressure Pulse Oximetry Oxygen Delivery Room Air 04/19/23 04:00 04/19/23 06:00 04/19/23 09:30 Temperature 96.8 F L Pulse Rate 70 74 Respiratory Rate 18 Blood Pressure 128/67 Pulse Oximetry 99 Oxygen Delivery Room Air Intake/Output Intake/Output: Intake & Output 04/16/23 04/17/23 04/18/23 04/19/23 23:59 23:59 23:59 23:59 Intake Total 200 200 Balance 200 200 Meds/Results Medications: Active Medications Generic Name Dose Route Start Last Admin Trade Name Freq PRN Reason Stop Dose Admin Acetaminophen 650 mg 04/17/23 16:12 Acetaminophen 325 Mg Tablet PO Q4H PRN Mild Pain (1-3) or Fever Aspirin 81 mg 04/18/23 08:00 04/19/23 09:31 Aspirin 81 Mg Chewable Tablet PO 81 mg DAILY@0800 [facility] Administration Ondansetron HCl 4 mg 04/17/23 16:12 Ondansetron Inj 4 Mg/2 Ml Vial IV PUSH Q4H PRN Nausea Perflutren Lipid Microsphere 0 ml 04/17/23 17:26 Perflutren Lipid Microspheres 1.5 Ml Vial Diluted To 10 Ml Total Volume IV PUSH 04/20/23 17:27 ONCE PRN adequate visualization Protocol Radiology Results: ITS Impressions Head CT 04/17/23 11:20 IMPRESSION: 1. Moderate nonspecific cerebral white matter disease, which likely represents chronic small vessel ischemic disease. Chest X-Ray 04/17/23 11:34 IMPRESSION: 1. Large hiat
[2023-04-20] VITALS (9 sets, daily range): BP systolic 113–154; BP diastolic 63–82; PULSE 66–83; RESP 19–24; TEMP 36.1–36.6; O2SAT 97–98
[2023-04-20] MEDS: ASPIRIN 81 MG CHEWABLE TABLET PO (08:18)
[2023-04-20] MEDS: ATORVASTATIN 40 MG TABLET PO (11:25)
[2023-04-20] MEDS: CYANOCOBALAMIN 1,000 MCG TABLET 1000 MCG PO (11:25)
--- NOTE | 2023-04-20 11:25 | PM.IMPN ---
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 Continue PT/OT Add Lipitor likely will need placement vs outpatient therapy (2) Left-sided weakness: Code(s): R53.1 - Weakness Status: Acute Assessment and Plan: Related to above (3) Hypertension: Code(s): I10 - Essential (primary) hypertension Status: Acute Assessment and Plan: Patient's blood pressure was reviewed on 04/20/23 Blood pressure remains well controlled. Will continue to monitor (4) Fibromuscular dysplasia of both carotid arteries: Code(s): I77.3 - Arterial fibromuscular dysplasia Status: Acute Assessment and Plan: Plan for follow-up with vascular outpatient (5) Anemia: Code(s): D64.9 - Anemia, unspecified Status: Acute Assessment and Plan: Hgb 11.3. Irons tudies normal. B12 265 so will replace B12. Foalte normal. Monitor hemoglobin Plan Chronic right elbow pain - will check xray. Consider ortho consult since will need as much mobility from her right side as possible. DVT prophylaxis with SCDs GI prophylaxis not indicated Code status DNR Subjective Date/time seen: 04/20/23 11:25 Interval history: 88-year-old female with history of high blood pressure presenting with altered mental status and left sided weakness and found to have acute CVA. Assuming care. Chart reviewed. Patient is alert but confused and unable to provide history. Daughter at bedside. Daughter states patient has had right elbow pain and contractures for long time. She tried therapy but stopped because of pain. Exam Narrative: AF 97 154/82 74 24 98% ra Gen - NARD sitting up in bed Chest - right base crackles o/w clear CV - RRR S1/S2. Tele showing no significant dysrhythmias. Abd - Soft, NT/ND, Positive BS Ext - No pedal edema. Mild edema noted around the right elbow. Pain with right arm extension Neuro -alert but confused. Right underground electrician 5-/5. Left underground electrician 4/5. Left hip flexor 3/5, right 4+/5 Psych - Nml mood and affect Skin - Warm and dry Objective Data Vital Signs Vital Signs: Vital Signs - 24 hr 04/19/23 14:00 04/19/23 12:00 04/19/23 16:00 Temperature 97.9 F Pulse Rate 73 79 76 Respiratory Rate 20 Blood Pressure 120/66 Pulse Oximetry 100 Oxygen Delivery 04/19/23 20:35 04/19/23 20:00 04/19/23 20:00 Temperature 97.5 F L Pulse Rate 72 72 74 Respiratory Rate 24 H 24 H Blood Pressure 129/81 Pulse Oximetry 99 99 Oxygen Delivery Room Air 04/20/23 00:00 04/20/23 04:00 04/20/23 04:35 Temperature 97 F L Pulse Rate 73 69 74 Respiratory Rate 24 H Blood Pressure 154/82 H Pulse Oximetry 98 Oxygen Delivery Intake/Output Intake/Output: Intake & Output 04/17/23 04/18/23 04/19/23 04/20/23 23:59 23:59 23:59 23:59 Intake Total 200 400 145 Balance 200 400 145 Meds/Results Medications: Active Medications Generic Name Dose Route Start Last Admin Trade Name Freq PRN Reason Stop Dose Admin Acetaminophen 650 mg 04/17/23 16:12 Acetaminophen 325 Mg Tablet PO Q4H PRN Mild Pain (1-3) or Fever Aspirin 81 mg 04/18/23 08:00 04/20/23 08:18 Aspirin 81 Mg Chewable Tablet PO 81 mg DAILY@0800 [facility] Administration Atorvastatin Calcium 40 mg 04/20/23 09:00 Atorvastatin 40 Mg Tablet PO DAILY [facility] Cyanocobalamin 1,000 mcg 04/20/23 09:00 Cyanocobalamin 1,000 Mcg Tablet PO QAM [facility] Ondansetron HCl 4 mg 04/17/23 16:12 Ondansetron Inj 4 Mg/2 Ml Vial IV PUSH Q4H PRN Nausea Perflutren Lipid Microsphere 0 ml 04/17/23 17:26 Perflutr
[2023-04-20] MEDS: CYANOCOBALAMIN INJ 1,000 MCG/ML VIAL 1000 MCG IM (12:02)
[2023-04-20] MEDS: ACETAMINOPHEN 325 MG TABLET 650 MG PO (14:15)
[2023-04-21] VITALS (9 sets, daily range): BP systolic 129–137; BP diastolic 63–67; PULSE 71–91; RESP 18; TEMP 35.7–36.2; O2SAT 98–100
[2023-04-21 06:49] LABS: Hematocrit 37.1 % (37.0-47.0); Hemoglobin 11.4 g/dL (12.0-15.0); Mean Corpuscular HGB Conc 30.7 g/dl (32-36); Mean Corpuscular Hemoglobin 26.9 pg (26-34); Mean Corpuscular Volume 87.5 fl (80-100); Mean Platelet Volume 9.4 fl (7.4-10.4); Platelet Count Result 419 k/mm3 (150-375); Red Blood Count 4.24 M/mm3 (4.2-5.4); Red Cell Distribution Width 14.5 % (11.5-14.5); White Blood Count 8.4 K/mm3 (4.5-10.0)
[2023-04-21 07:01] LABS: Anion Gap 7 mmol/L (8-16); Blood Urea Nitrogen 26 mg/dL (7-17); Calcium 9.5 mg/dL (8.4-10.2); Carbon Dioxide 27 mmol/L (22-30); Chloride 106 mmol/L (98-107); Estimated CRCL calculation 48 ml/min; Estimated Glomerular Filt Rate > 60; Glucose 94 mg/dL (65-110); Potassium 3.1 mmol/L (3.4-5.0); Sodium 140 mmol/L (137-145)
[2023-04-21] MEDS: ACETAMINOPHEN 325 MG TABLET 650 MG PO (09:30)
[2023-04-21] MEDS: ASPIRIN 81 MG CHEWABLE TABLET PO (09:30)
[2023-04-21] MEDS: CYANOCOBALAMIN 1,000 MCG TABLET 1000 MCG PO (09:30)
[2023-04-21] MEDS: ATORVASTATIN 40 MG TABLET PO (09:31)
--- NOTE | 2023-04-21 09:37 | PM.CNOR ---
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 discussed condition, nature, etiology and course of natural history. Conservative and operative treatment options reviewed as well the risks and benefits of each. From an operative standpoint, patient would require an elbow replacement. She would be referred to an upper extremity specialist. She is not currently a candidate for surgical intervention given recent stroke. For pain relief, would recommend right elbow injection therefore patient would be more able to bear weight on the right upper extremity given her acute onset left-sided weakness due to recent stroke. Patient and family verbalized understanding agree with plan of care. We will send patient to undergo an injection under fluoroscopy with the radiologist. Patient may be weight-bearing as tolerated of the right upper extremity. Recommend PT and OT for mobilization given recent stroke. Thank you for allowing us to assist in the care of this patient. Please contact us if further orthopedic recommendations are needed. (2) CVA (cerebral vascular accident): Code(s): I63.9 - Cerebral infarction, unspecified Status: Acute (3) Anemia: Code(s): D64.9 - Anemia, unspecified Status: Acute (4) Fibromuscular dysplasia of both carotid arteries: Code(s): I77.3 - Arterial fibromuscular dysplasia Status: Acute (5) Left-sided weakness: Code(s): R53.1 - Weakness Status: Acute (6) Hypertension: Code(s): I10 - Essential (primary) hypertension Status: Acute Plan Reviewed history, exam, radiographs and current labs with attending MD and covering surgeon, Dr. Clark, who agrees with current plan as indicated above. No further recommendations from Dr. Clark at this time. History of Present Illness HPI Consult date: 04/21/23 Chief complaint: CVA, Weakness Narrative: 80-year-old female admitted from home due to weakness. She was initially found to have weakness of the left upper extremity and left lower extremity as well the left facial droop. Unfortunately, she was outside of the window for any intervention by the time she presented. She is being followed by Neurology and the medicine seen. for the patient and family, she had a right elbow fracture 40 years ago. She has had right elbow pain since that time. This is a chronic finding. Given her new onset left upper extremity weakness, she is having difficulty mobilizing due to her right elbow pain which is now her dominant side. 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 orthopedic consult requested by the hospitalist service. Review of Systems Review of Systems: All systems reviewed & are unremarkable except as noted in HPI and below PMFSH Past Medical History Medical History (Updated 04/21/23 @ 13:07 by JASWINDER Dixon) Degenerative joint disease of right elbow Hypertension Surgical History Surgical History History of cataract extraction with lens replacement History of cholecystectomy History of hysterectomy History of tonsillectomy Family History Family History (Reviewed 04/21/23 @ 1
--- NOTE | 2023-04-21 10:03 | WPDNEUROPN ---
Progress Note: A&P Assessment and Plan (1) CVA (cerebral vascular accident): Code(s): I63.9 - Cerebral infarction, unspecified Status: Acute (2) Fibromuscular dysplasia of both carotid arteries: Code(s): I77.3 - Arterial fibromuscular dysplasia Status: Acute (3) Left-sided weakness: Code(s): R53.1 - Weakness Status: Acute Plan Arielle Peñaloza is a 88 year old female with a history of hypertension who was brought in due to concerns for generalized weakness. Initially presented due to concerns for generalized weakness but in the ED noted to have LUE and LLE weakness. She was outside the window for any intervention by the time she presented. MRI brain showed R basal ganglia acute infarct. Based on size, too large to be considered lacunar infarct. CTA showed fibromuscular dysplasia of the bilateral extracranial internal carotid arteries, which theoretically could the cause of stroke. - Continue Aspirin 81mg daily - Continue Lipitor 40mg daily - Will need follow-up with vascular given the fibromuscular dysplasia noted on imaging Subjective Date/time seen: 04/21/23 10:03 Interval history: Arielle Peñaloza is a 88 year old female with a history of hypertension who was brought in due to concerns for generalized weakness. Patient's LKW was 1600 on 04/16. At that time she decided to go to bed. She woke up around 2130 on the same night and felt that she was weak. She needed some help getting back into bed and went back to sleep. She wickiup the following morning (day of presentation), with continued generalized weakness so she was taken to [place] ED. In the ED her exam was concerning for more pronounced LUE and LLE weakness, although patient reports that she has chronic pain in her L elbow that limits her ability to raise that arm. She was also noted to have some slurring of her speech from baseline. Her blood pressure in the ED was in the 130s systolic. EKG showed normal sinus rhythm. Lab work was unrevealing. UA was not concerning for infection. CT head did not show any acute changes. 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 She has been started on baby aspirin 81mg daily but the hospitalist. MRI brain showed acute infarct in the right basal ganglia. Surface echocardiogram with bubble study was negative for shunt. LDL is 137 and A1c 5. She has been started on Lipitor 40mg daily. Blood pressure has been up to 150s systolic over the past few days. Review of Systems Review of Systems: ROS unobtainable: Yes unobtainable due to medical condition and unobtainable due to mental status Exam Const: General: comfortable and no acute distress HENMT: Mouth: Yes moist mucous membranes Eyes: Other: seems to have slight R gaze preference Resp: Effort & Inspection: normal respiratory effort Skin: General skin exam: normal color Neuro: Other: Awake, alert, oriented to self and location (knew she is at hospital), L facial droop, RUE 3/5, LUE 3/5, bilateral lower extremities RLE 3/5, LLE 2/5, sensation seems to be symmetric, unable to perform FNF due to elbow pain. Speech somewhat garbled and difficulty to understand. Extrem: General: normal to inspection Psych: Affect: normal affect Objective Data Vital Signs Vital Signs: Vital Signs - 24 hr 04/20/23 14:00 04/20/23 12:00 04/20/23 16:00 Temperature 36.5 C Pulse Rate 78 83 66 Respiratory Rate 20 Blood Pressure 113/65 Pulse Oximetry 98 Oxygen Delivery 04/20/23 20:00 04/20/23 20:00 04/20/23 20:55 Temperature 36.6 C Pulse Rate 77 73 73 Respiratory Rate 19 19 Blood Pressure 149/63 H Pulse Oximetry 97 97 Oxygen Delivery Room Air 04/21/23 00:00 04/21/23 04:00 04/21/23 05:55 Temperature 35.7 C L Pulse Rate 71 76 72 Res
--- NOTE | 2023-04-21 17:48 | PM.IMPN ---
Progress Note: A&P Assessment and Plan (1) CVA (cerebral vascular accident): Code(s): I63.9 - Cerebral infarction, unspecified Status: Acute Assessment and Plan: Patient presents with weakness. MRI brain showing right basal ganglia infarct. Echo showed EF >70% with grade I diastolic dysfunction Appreciate neurology consult Aspirin 81 mg daily PT/OT/ST ordered ST recommends pureed level 4 which was started. Continue PT/OT Continue Lipitor Likely will need placement (2) Left-sided weakness: Code(s): R53.1 - Weakness Status: Acute Assessment and Plan: Related to above (3) Hypertension: Code(s): I10 - Essential (primary) hypertension Status: Acute Assessment and Plan: Patient's blood pressure was reviewed on 04/21 Blood pressure remains well controlled. Will continue to monitor (4) Fibromuscular dysplasia of both carotid arteries: Code(s): I77.3 - Arterial fibromuscular dysplasia Status: Acute Assessment and Plan: Plan for follow-up with vascular outpatient (5) Anemia: Code(s): D64.9 - Anemia, unspecified Status: Acute Assessment and Plan: Hgb 11.3. Iron studies normal. B12 265 so will replace B12. Folate normal. 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 Ortho consulted and appreciate their input. Patient underwent steroid injection to try to improve the functionality of her RUE. Continue PT/OT Plan DVT prophylaxis with SCDs GI prophylaxis not indicated Code status DNR Subjective Date/time seen: 04/21/23 17:48 Interval history: 88-year-old female with history of high blood pressure presenting with altered mental status and left sided weakness and found to have acute CVA. Patient is alert but confused. She is unable to provide hx. Review of Systems Review of Systems: ROS unobtainable: Yes unobtainable due to medical condition Exam Narrative: AF 97 129/67 82 18 100% ra Gen - NARD sitting up in bed Chest - clear anteriorly CV - RRR S1/S2 Abd - Soft, NT/ND, Positive BS Ext - No pedal edema. Mild edema noted around the right elbow. Pain with right arm extension Neuro -alert but confused. Right pet adoption counselor 5-/5. Left pet adoption counselor 4/5. Psych - Nml mood and affect Skin - Warm and dry Objective Data Vital Signs Vital Signs: Vital Signs - 24 hr 04/20/23 20:00 04/20/23 20:00 04/20/23 20:55 Temperature 98 F Pulse Rate 77 73 73 Respiratory Rate 19 19 Blood Pressure 149/63 H Pulse Oximetry 97 97 Oxygen Delivery Room Air 04/21/23 00:00 04/21/23 04:00 04/21/23 05:55 Temperature 96.3 F L Pulse Rate 71 76 72 Respiratory Rate 18 Blood Pressure 133/65 Pulse Oximetry 99 Oxygen Delivery 04/21/23 08:00 04/21/23 14:00 04/21/23 12:00 Temperature 97 F L Pulse Rate 72 82 72 Respiratory Rate 18 Blood Pressure 129/67 Pulse Oximetry 100 Oxygen Delivery Intake/Output Intake/Output: Intake & Output 04/18/23 04/19/23 04/20/23 04/21/23 23:59 23:59 23:59 23:59 Intake Total 200 400 565 710 Balance 200 400 565 710 Meds/Results Medications: Active Medications Generic Name Dose Route Start Last Admin Trade Name Freq PRN Reason Stop Dose Admin Acetaminophen 650 mg 04/17/23 16:12 04/21/23 09:30 Acetaminophen 325 Mg Tablet PO 650 mg Q4H PRN Administration Mild Pain (1-3) or Fever Aspirin 81 mg 04/18/23 08:00 04/21/23 09:30 Aspirin 81 Mg Chewable Tablet PO 81 mg DAILY@0800 CARISSA Administration Atorvastatin Calcium 40 mg 04/20/23 09:00 04/21/23 09:31 Atorva
[2023-04-21] MEDS: POTASSIUM CHLORIDE 20 MEQ PACKET (FOR LIQUID) 40 MEQ PO (18:15)
[2023-04-22] VITALS: PULSE 72
[2023-04-22 04:00] VITALS: PULSE 75
[2023-04-22 05:20] VITALS: BP 132/59; PULSE 74; RESP 18; TEMP 36.4; O2SAT 100
[2023-04-22 08:00] VITALS: PULSE 73
[2023-04-22] MEDS: ATORVASTATIN 40 MG TABLET PO (08:53)
[2023-04-22] MEDS: CYANOCOBALAMIN 1,000 MCG TABLET 1000 MCG PO (08:53)
[2023-04-22] MEDS: ASPIRIN 81 MG CHEWABLE TABLET PO (08:53)
--- NOTE | 2023-04-22 10:11 | PM.IMPN ---
Progress Note: A&P Assessment and Plan (1) CVA (cerebral vascular accident): Code(s): I63.9 - Cerebral infarction, unspecified Status: Acute Assessment and Plan: Patient presents with weakness. MRI brain showing right basal ganglia infarct. Echo showed EF >70% with grade I diastolic dysfunction Appreciate neurology consult Aspirin 81 mg daily PT/OT/ST ordered No AFib by tele ST recommends pureed level 4 which was started. Continue PT/OT Continue Lipitor Placement being arranged. (2) Left-sided weakness: Code(s): R53.1 - Weakness Status: Acute Assessment and Plan: Related to above (3) Hypertension: Code(s): I10 - Essential (primary) hypertension Status: Acute Assessment and Plan: Patient's blood pressure was reviewed on 04/22 Blood pressure remains well controlled. Will continue to monitor (4) Fibromuscular dysplasia of both carotid arteries: Code(s): I77.3 - Arterial fibromuscular dysplasia Status: Acute Assessment and Plan: Plan for follow-up with vascular outpatient (5) Anemia: Code(s): D64.9 - Anemia, unspecified Status: Acute Assessment and Plan: Hgb 11.3. Iron studies normal. B12 265 so B12 replacement ordered. Folate normal. 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 Ortho consulted and appreciate their input. Patient underwent steroid injection to try to improve the functionality of her RUE. Some improvement today Continue PT/OT Plan DVT prophylaxis with SCDs GI prophylaxis not indicated Code status DNR Subjective Date/time seen: 04/22/23 10:11 Interval history: 88-year-old female with history of high blood pressure presenting with altered mental status and left sided weakness and found to have acute CVA. Patient is alert but confused. She is unable to provide hx. Exam Narrative: AF 97.6 132/59 74 18 100% ra Gen - NARD sitting up in bed being fed breakfast Chest - clear anteriorly and in the flanks, nml RR CV - RRR S1/S2. Tele showing PVCs Abd - Soft, NT/ND, Positive BS Ext - No pedal edema. Able to extend right arm better Neuro -alert but confused. Follows commands Psych - Nml mood and affect Skin - Warm and dry Objective Data Vital Signs Vital Signs: Vital Signs - 24 hr 04/21/23 14:00 04/21/23 12:00 04/21/23 16:00 Temperature 97 F L Pulse Rate 82 72 72 Respiratory Rate 18 Blood Pressure 129/67 Pulse Oximetry 100 04/21/23 21:27 04/21/23 20:00 04/22/23 00:00 Temperature 97.1 F L Pulse Rate 72 91 72 Respiratory Rate 18 Blood Pressure 137/63 Pulse Oximetry 98 04/22/23 04:00 04/22/23 05:20 Temperature 97.6 F Pulse Rate 75 74 Respiratory Rate 18 Blood Pressure 132/59 L Pulse Oximetry 100 Intake/Output Intake/Output: Intake & Output 04/19/23 04/20/23 04/21/23 04/22/23 23:59 23:59 23:59 23:59 Intake Total 400 565 710 145 Output Total 250 Balance 400 565 710 -105 Meds/Results Medications: Active Medications Generic Name Dose Route Start Last Admin Trade Name Freq PRN Reason Stop Dose Admin Acetaminophen 650 mg 04/17/23 16:12 04/21/23 09:30 Acetaminophen 325 Mg Tablet PO 650 mg Q4H PRN Administration Mild Pain (1-3) or Fever Aspirin 81 mg 04/18/23 08:00 04/22/23 08:53 Aspirin 81 Mg Chewable Tablet PO 81 mg DAILY@0800 CARISSA Administration Atorvastatin Calcium 40 mg 04/20/23 09:00 04/22/23 08:53 Atorvastatin 40 Mg Tablet PO 40 mg DAILY CARISSA Administration Cyanocobalamin 1,000 mcg 04/20/23 09:00 04/22/23 08:
[2023-04-22 14:00] VITALS: BP 138/64; PULSE 86; RESP 20; TEMP 37; O2SAT 100
--- NOTE | 2023-04-22 14:01 | PM.DS ---
DS: Admitting Diagnosis Discharge Date 04/22/23 Admitting Diagnosis Altered mental status and left sided weakness DS: Discharge Diagnosis Discharge Diagnosis (1) CVA (cerebral vascular accident): Code(s): I63.9 - Cerebral infarction, unspecified Status: Acute (2) Left-sided weakness: Code(s): R53.1 - Weakness Status: Acute (3) Hypertension: Code(s): I10 - Essential (primary) hypertension Status: Acute (4) Fibromuscular dysplasia of both carotid arteries: Code(s): I77.3 - Arterial fibromuscular dysplasia Status: Acute (5) Anemia: Code(s): D64.9 - Anemia, unspecified Status: Acute (6) Degenerative joint disease of right elbow: Qualifiers: Osteoarthritis type: post-traumatic Qualified Code(s): 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 Please see H&P for details Hospital Course: Patient presents with weakness and altered mental status. MRI brain showing right basal ganglia infarct. Echo showed EF >70% with grade I diastolic dysfunction. CTA head/neck showing possible bilateral extracranial carotid artery fibromuscular dysplasia. Neurology consulted and appreciate their input. Aspirin and Lipitor started. PT/OT/ST ordered. No AFib by tele. ST recommends pureed level 4 which was started. She was noted to have fibromuscular dysplasia of both carotid arteries. Plan for her to arrange for follow-up with vascular surgery as outpatient. She had mild anemia with Hgb 11.3. Iron studies normal. B12 265 so B12 replacement ordered. Folate normal. She has a chronic right elbow pain and fracture. 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 Ortho consulted and appreciate their input. Patient underwent steroid injection to try to improve the functionality of her RUE with some improvement noted. She overall did well and was able to be discharged to rehab on 04/22/23. Status at Discharge Cognitive/behavioral status at discharge: stable Time Spent with Patient Time attestation: Total time spent providing and/or coordinating discharge services: 35 minutes Time spent: Greater than 30 minutes Exam Narrative: AF 97.6 132/59 74 18 100% ra Gen - NARD sitting up in bed being fed breakfast Chest - clear anteriorly and in the flanks, nml RR CV - RRR S1/S2. Tele showing PVCs Abd - Soft, NT/ND, Positive BS Ext - No pedal edema. Able to extend right arm better Neuro -alert but confused. Follows commands Psych - Nml mood and affect Skin - Warm and dry Discharge Plan Discharge Attending physician on discharge: Carlos Reed Consulting providers: Rimma Adams; Daniel Clark Discharging Clinician: Carlos Reed Anticipated Discharge Date/Time: 04/22/23 14:10 Patient Disposition: Acute Care Hospital Activity: as tolerated Diet: other - see discharge instructions Discharge Instructions: Orthopedic Recommendations Dr. Daniel Clark/Sugey Jones, NIRMAL [phone] Weight bearing as tolerated right upper extremity Pain control, ice, topical analgesics May repeat injection right elbow in 3 months if desired. Would need to be done under fluroscopy at [facility]. Contact our office at [phone] if any needs Diet: pureed level 4 regular diet with mildly thick, Level 2 liquids. Check blood pressure 1 to 2 times a day. Record for the doctor's review. Take precautions to avoid falls. Rise slowly from a lying or sitting position. Pause before standing or walking. Contact the doctor if the patient has any fevers or other worrisome symptoms. Avoid NSAIDs (ibuprofen, naproxen, Aleve). Tylenol is safe to take. Follow-up with the prov
[2023-04-22 18:42] LABS: SARS-CoV-2 RNA PCR Negative (Negative)
== END 2023-04-22 20:50 | DRG 65 ==
LOC: ANHED 10:40 → ANH3MEDSUR 18:06
PROVIDERS: Physician Assistant; Student in an Organized Health Care Education/Training Program; Admitting Provider Family Medicine; Emergency Provider Emergency Medicine; PCP Physician Assistant; Visit Provider Internal Medicine
DX: I63.9 Cerebral infarction, unspecified (principal); G81.94 Hemiplegia, unspecified affecting left nondominant side; S42.401K Unspecified fracture of lower end of right humerus, subsequent encounter for fracture with nonunion; M19.121 Post-traumatic osteoarthritis, right elbow; X58.XXXD Exposure to other specified factors, subsequent encounter; R29.810 Facial weakness; R29.703 NIHSS score 3; R41.82 Altered mental status, unspecified; R47.81 Slurred speech; I10 Essential (primary) hypertension; I77.3 Arterial fibromuscular dysplasia; D64.9 Anemia, unspecified; Z20.822 Contact with and (suspected) exposure to COVID-19; Z66 Do not resuscitate; Z98.49 Cataract extraction status, unspecified eye; Z96.1 Presence of intraocular lens; Z91.81 History of falling; Z90.49 Acquired absence of other specified parts of digestive tract; Z90.710 Acquired absence of both cervix and uterus
CPT/HCPCS: 20605; 36415; 70450; 70496; 70498; 70551; 71045; 73080; 77002; 80048; 80053; 80061; 81001; 82607; 82728; 82746; 83036; 83540; 83550; 83605; 84443; 85025; 85027; 85610; 85730; 87635; 87637; 92526; 92610; 93005; 93306; 97110; 97112; 97162; 97165; 97530; 99285; A9270; G0378; J3420; Q9966; Q9967